=== PATIENT | male | born 1970 | race Caucasian/White ===

== ENCOUNTER → 2018-04-04 | Day surgery (SDC) | payer OTHER ==
[~2018-04-04] MED LIST: BUSP30TA PO; CETI1TAB7 PO; PRAZ2CAP2 PO; PROPOFOL 20 ML IV ONE; SERT100T PO
[2018-04-04 07:34] VITALS: BP 119/78
--- NOTE | 2018-04-04 08:32 | CONS ---
DATE OF CONSULTATION: 04/04/2018 REFERRING PHYSICIAN: Yanet Bansal NP REASON FOR CONSULTATION: History of hep C, screening for varices. HISTORY OF PRESENT ILLNESS: A 47-year-old male with past medical history significant for hepatitis C as well as polypharmacy abuse is seen for a screening upper endoscopy. He has been successfully treated for hepatitis C with antiviral therapy for 12 weeks. He denies any extrahepatic manifestations of liver disease at this time, denies any bleeding or pruritus, weight loss or additional constitutional symptoms, is without additional complaints. PAST MEDICAL HISTORY: Status post humerus repair, hepatitis C, polypharmacy abuse. ALLERGIES: AMOXICILLIN, CLAVULANIC ACID. MEDICATIONS: Include BuSpar, Zyrtec, prazosin, and Zoloft. SOCIAL HISTORY: Former smoker and drinker. FAMILY HISTORY: Noncontributory for liver disease. REVIEW OF SYSTEMS: As per records. PHYSICAL EXAMINATION: GENERAL: Reveals a well-nourished, well-developed male. VITAL SIGNS: Temperature is 97.4, pulse is 80, respirations 18. HEENT: Normocephalic, atraumatic head. Pupils and extraocular muscles are not tested. Sclerae nonicteric. NECK: Supple. LUNGS: Clear. CARDIOVASCULAR: Reveals an S1, S2 without S3, S4 or appreciable murmur. ABDOMEN: Soft abdomen, normal bowel sounds without appreciable hepatosplenomegaly. EXTREMITIES: Revealed no cyanosis, clubbing, edema. SKIN: No striae noted. IMPRESSION: Hepatitis C, status post therapy. PLAN: Will be assessed with upper endoscopy. Risks and benefits were discussed with the patient including risks of hemorrhage or perforation and is willing to proceed. MARTIN ARGUETA MD DR: LUCILLE/norberto JOB#: [id number] / [id number] YANET Fu NP
== END | disposition home or self-care (01) ==
LOC: EEVIPCON 06:02 → SURG 06:02
PROVIDERS: ATTEND Internal Medicine Gastroenterology
DX: K29.60 Other gastritis without bleeding (principal); Z98.890 Other specified postprocedural states; Z88.1 Allergy status to other antibiotic agents; Z88.8 Allergy status to other drugs, medicaments and biological substances; Z79.899 Other long term (current) drug therapy; Z87.891 Personal history of nicotine dependence; Z72.89 Other problems related to lifestyle
CPT/HCPCS: 43235; J2704

== ENCOUNTER → 2020-10-30 | Day surgery (SDC) | payer OTHER ==
[~2020-10-30] VITALS: Ht 188 cm; Wt 225.0 kg
[~2020-10-30] MED LIST changes: +ATOR40TA59 PO; +DULO60CA6 PO; +HYDR50CA2 PO; +HYDROmorphone 2 MG/ML VIAL IVP PRN; +IV RINGERS,LACTATED 1000ML 1,000 ML IV SCH; +LIDOCAINE 2% PF 5 ML VIAL. ONE; +LISI-130 PO; +MONT10TA49 PO; +MORPHINE SULFATE 2 MG/ML INJ. IVP PRN; +OMEP20CA16 PO; +PRAZ5CAP2 PO; +PROCHLORPERAZINE 10 MG/2 ML VIAL. IVP PRN; +PROPOFOL 10 MG/ML (20ML) VIAL. IV ONE; -PROPOFOL 20 ML IV ONE; +fentaNYL PF VIAL 100 MCG/2 ML VIAL IVP PRN
[2020-10-30 06:10] VITALS: BP 124/77
[2020-10-30 08:05] VITALS: BP 143/86
--- NOTE | 2020-10-30 23:37 | CONS ---
DATE OF CONSULTATION: 10/30/2020 UPDATED HISTORY AND PHYSICAL REASON: History of ulcerative colitis, surveillance exam. HISTORY OF PRESENT ILLNESS: This is a 50-year-old male whose past medical history is significant for hep C, polypharmacy use, ulcerative colitis, seen for interval exam. Bowel habits, alternating for diarrhea and constipation. There has been no melena and/or hematochezia. He has not been on any maintenance therapy in the recent past and has no extraintestinal manifestations. PAST MEDICAL HISTORY: UC, hep C, polypharmacy abuse, status post humerus repair. Additional past history is significant for hyperlipidemia and hypertension. ALLERGIES: AMOXICILLIN, CLAVULANIC ACID. MEDICATIONS: Include atorvastatin, , Cymbalta, lisinopril, Montelukast, omeprazole, and prazosin. FAMILY HISTORY: Noncontributory. SOCIAL HISTORY: He is a former smoker and drinker. REVIEW OF SYSTEMS: Per records. PHYSICAL EXAMINATION: GENERAL: Reveals a well-nourished, well-developed male who is alert, cooperative, in no acute distress. VITAL SIGNS: Temperature is 97.1, pulse 80, respiratory rate 18. LUNGS: Clear. CARDIOVASCULAR: Reveal S1, S2, without S3, S4 or appreciable murmur. ABDOMEN: Soft abdomen, normal bowel sounds, without appreciable hepatosplenomegaly. EXTREMITIES: Reveals no cyanosis, clubbing or edema. IMPRESSION: Ulcerative colitis. Surveillance exam is recommended at this time with biopsies to ascertain if chronic colitis is in fact present as the patient has not been on maintenance therapies. I thank, ____, for allowing us to consult on this patient's care. CINDY/KRISTY DR: Valeri TID: [id number]
--- NOTE | 2020-11-02 17:06 | PATHOLOGY ---
[facility] Accession Number: [id number] . 01 Material submitted: . PART A: colon - RIGHT COLON BIOPSIES. Modifiers: right PART B: colon - TRANSVERSE COLON BIOPSIES. Modifiers: transverse PART C: colon - LEFT COLON BIOPSIES. Modifiers: left . 01 Clinical history: . HX COLITIS COLONOSCOPY CONSTIPATION . 02 Diagnosis: A. Right colon biopsies: - Segments of colonic mucosa showing no evidence of an active chronic colitis, dysplasia, or malignancy. . B. Transverse colon biopsies: - Segments of colonic mucosa showing no evidence of an active chronic colitis, dysplasia, or malignancy. . C. Left colon biopsies: - Segments of colonic mucosa showing no evidence of an active chronic colitis, dysplasia, or malignancy. . (JPM:mm; 11/02/2020) [facility] 11/02/2020 1145 Local . 02 Comment: Sections of the right colon, transverse colon, and left colon biopsies appear similar and reveal multiple segments of colonic mucosa containing a few mucosal-associated lymphoid aggregates. The colonic glands within the biopsy segments appear regularly distributed and show no significant architectural distortion. There is no evidence of an active chronic colitis, dysplasia, or malignancy. . (JPM:mml; 11/02/2020) . 02 Electronically signed: . Dutch De Guzman MD, Pathologist NPI- [id number] . 01 Gross description: . A. The specimen is received in formalin, labeled "Rita Ye, right colon biopsies ". Received are multiple segments of pale underwood tissue ranging in size from 0.3 to 0.5 cm in maximum dimensions. The specimen is submitted entirely in cassette A1. . B. The specimen is received in formalin, labeled "Rita Ye, transverse colon biopsies". Received are multiple segments of pale underwood tissue ranging in size from 0.2 to 0.6 cm in maximum dimensions. The specimen is submitted entirely in cassette B1. . C. The specimen is received in formalin, labeled "Rita Ye, left colon biopsies". Received are multiple segments of pale underwood tissue ranging in size from 0.3 to 0.4 cm in maximum dimensions. The specimen is submitted entirely in cassette C1.([facility]; 10/30/2020) [facility] 11/02/2020 [address] [facility] . 02 Pathologist provided ICD-10: Z87.19, Z12.11, K59.00 . 02 CPT . 999690, 537172, [id number] Specimen Comment: A courtesy copy of this report has been sent to [phone] Specimen Comment: Report sent to [facility] Specimen Comment: A duplicate report has been generated due to demographic updates. Performed at: 01 [facility] [address], [place] [id number] MD Xu Wells MD Phone: [phone] Performed at: 02 [facility] [address], [place] [id number] MD Dutch De Guzman MD Phone: [phone]
== END | disposition home or self-care (01) ==
LOC: ENDOS 05:54 → EEVIPCON 07:00
PROVIDERS: ATTEND Internal Medicine Gastroenterology
DX: K51.00 Ulcerative (chronic) pancolitis without complications (principal); K59.00 Constipation, unspecified; K64.0 First degree hemorrhoids; K63.89 Other specified diseases of intestine; I10 Essential (primary) hypertension; E78.00 Pure hypercholesterolemia, unspecified; M19.90 Unspecified osteoarthritis, unspecified site; F41.9 Anxiety disorder, unspecified; F32.9 Major depressive disorder, single episode, unspecified; Z87.19 Personal history of other diseases of the digestive system; Z88.1 Allergy status to other antibiotic agents; Z79.899 Other long term (current) drug therapy; Z98.890 Other specified postprocedural states
CPT/HCPCS: 45380; 88305; J2704